=== PATIENT | female | born 1980 | race African-American/Black ===

== ENCOUNTER 2017-03-23 12:31 | Inpatient (IN) | payer BC ==
--- NOTE | 2017-03-23 13:47 | ER Document Report ---
ED General Pain - General Chief Complaint: Rib Pain Stated Complaint: LEFT SIDE PAIN Time Seen by Provider: 03/23/17 13:47 Mode of Arrival: Ambulatory Information source: Patient Notes: 36 yo hypertensive non smoker female c/o intermittent sharp piercing left posterior lateral lower rib area pain for several months. Throbbs a few minutes , later on in the day she will feel it again, 1-2 x per week. No aggrevating or alleviating factors.Today, feels a knot or swelling in the area this morning when getting up and getting dress. [place] around and could feel something there- sore to touch, caused her to come to er to be evaluated. Pt at [facility]. Not sure if this is something serious or not. no other symptoms. No dysuria. TRAVEL OUTSIDE OF THE [place] IN LAST 30 DAYS: No - Related Data Allergies/Adverse Reactions: No Known Allergies Allergy (Verified 03/23/17 12:41) Past Medical History - General Information source: Patient - Social History Smoking Status: Never Smoker Frequency of alcohol use: None Drug Abuse: None Lives with: Family Family History: DM, Hypertension Patient has suicidal ideation: No Patient has homicidal ideation: No - Past Medical History Cardiac Medical History: Reports: Hx Hypertension - chronic , has been sent to hypertension specialist by [facility] Neurological Medical History: Reports: Hx Migraine Renal/ Medical History: Denies: Hx Peritoneal Dialysis Past Surgical History: Reports: Hx Section - Immunizations Immunizations up to date: No Hx Diphtheria, Pertussis, Tetanus Vaccination: No Review of Systems - Review of Systems Constitutional: No symptoms reported EENT: No symptoms reported Cardiovascular: See HPI Respiratory: No symptoms reported Gastrointestinal: No symptoms reported Genitourinary: No symptoms reported Female Genitourinary: No symptoms reported Musculoskeletal: See HPI Skin: No symptoms reported Hematologic/Lymphatic: No symptoms reported Neurological/Psychological: No symptoms reported Physical Exam - Vital signs Vitals: Temp Pulse Resp BP Pulse Ox 98.4 F 114 H 14 200/128 H 100 03/23/17 12:44 03/23/17 12:44 03/23/17 12:44 03/23/17 12:44 03/23/17 12:44 Interpretation: Normal - General General appearance: Appears well, Alert In distress: Mild Notes: leaning to the right because of this pain - HEENT Head: Normocephalic, Atraumatic Eyes: Normal Conjunctiva: Normal Pupils: PERRL Neck: Supple. No: Lymphadenopathy - Respiratory Respiratory status: No respiratory distress Chest status: Nontender, Tender - left posterior lateral lower ribs, no rash Breath sounds: Normal Chest palpation: Normal Notes: hx right low back shingles-takes acyclovir - Cardiovascular Rhythm: Regular Heart sounds: Normal auscultation Murmur: No - Abdominal Inspection: Normal Distension: No distension Bowel sounds: Normal Tenderness: Nontender. No: Tender Organomegaly: No organomegaly. No: Hepatomegaly, Splenomegaly - Back Back: Normal, Nontender. No: Vertebra tenderness, Wounds - Extremities General upper extremity: Normal inspection, Nontender, Normal color, Normal ROM , Normal temperature General lower extremity: Normal inspection, Nontender, Normal color, Normal ROM , Normal temperature, Normal weight bearing. No: Dilcia's sign - Neurological Neuro grossly intact: Yes Cognition: Normal Orientation: AAOx4 [place] Coma Scale Eye Opening: Spontaneous [place] Coma Scale Verbal: Oriented [place] Coma Scale Motor: Obeys Commands [place] Coma Scale Total: 15 Speech: Normal Motor strength normal: LUE, RUE, LLE, RLE Sensory: Normal - Psychological Associated symptoms: Normal affect, Normal mood - Skin Skin Temperature: Warm Skin Moisture: Dry Skin Color: Normal Skin irregularity: negative: Rash Course - Re-evaluation Re-evalutation: 03/23/17 14:[address] Adrian for manual bp 238/150, basically the same in both arms, he wants EKG done. 03/23/17 15:30 EKG shows T-wave inversion in 2 3 aVF and V4 5 and [address] Adrian recommends getting the chest pain protocol putting her on the monitor and if her troponin is negative and admitting her to the hospital. She takes amlodipine and lisinopril the nurses calling real low for dosage. bp is 220/138 which is almost her baseline, pain 3/5 now. the realo external filled medications 03-03-17 showed labetalol 30mg bid. 03/23/17 17:10 Dr. austin will admit the pt does not have dissecting aneurysm, wanted me to order the CTA chest.asked chief inspector for correct orders. 03/23/17 18:20 Dr. Austin was contacted again, he will not admit the patient until the CT of the chest was read and is negative. morphine ordered for the pain that has stayed in the same location. 03/23/17 18:39 The patient thinks is taking 3 antihypertensive. States she has not had amlodipine filled since October 2016 and lisinopril/HCTZ was last filled May 2016. I will be calling the mother at [phone] to get the correct medication so that she can be treated properly. 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 03/23/17 19:31 bp 191/138, morphine 8 mg ordered IV, pending the CT results, verified with mom that pt is ONLY on labetalol 300mg bid. 03/23/17 19:47 cta negative per radiologist. call to dr. ramsay, not answering the phone. pain down to 1-2 from the morphine. repeat troponin ordered. no change in 2nda EKG 03/23/17 20:09 dr. ramsay will admit to ICU, asked to order Cardene drip to reduce her systolic blood pressure goal to 170-190 and diastolic goal is less than 100. urine drug Screen and serum test are pending. 03/23/17 20:13 pain to level1/5 - Vital Signs Vital signs: Temp Pulse Resp BP Pulse Ox 98.4 F 114 H 18 215/134 H 100 03/23/17 12:44 03/23/17 12:44 03/23/17 17:00 03/23/17 16:05 03/23/17 17:00 - Laboratory Result Diagrams: 03/23/17 15:41 03/23/17 15:41 Laboratory results interpreted by me: 03/23/17 03/23/17 15:41 15:41 Hgb 11.8 L MCV 79 L MCH 24.5 L MCHC 31.2 L RDW 16.1 H Potassium 3.4 L AST 40 H Creatine Kinase 174 H Total Protein 8.3 H Discharge - Discharge Clinical Impression: left lateral chest pain, hypertension, T wave inversion in EKG Disposition: ADMITTED OBSERVATION Admitting Provider: Hospitalist Unit Admitted: ICU Referrals: JARET REILLY PA-C [Primary Care Provider] - Follow up as needed
[2017-03-23] MEDS ORDERED: OXYCODONE-ACETAMINOPHEN 5-325 MG TABLET PO ONE (14:15)
[2017-03-23] MEDS ORDERED: ONDANSETRON 4 MG TAB.RAPDIS PO ONE (14:15)
--- NOTE | 2017-03-23 14:35 | RADIOLOGY REPORT (SQ) ---
EXAM DESCRIPTION: CHEST PA/LAT COMPLETED DATE/TIME: 03/23/2017 2:28 pm REASON FOR STUDY: left lower chest pain COMPARISON: None. EXAM PARAMETERS: NUMBER OF VIEWS: two views TECHNIQUE: Digital Frontal and Lateral radiographic views of the chest acquired. RADIATION DOSE: NA LIMITATIONS: none FINDINGS: LUNGS AND PLEURA: No opacities, masses or pneumothorax. No pleural effusion. MEDIASTINUM AND HILAR STRUCTURES: No masses or contour abnormalities. HEART AND VASCULAR STRUCTURES: Heart normal size. No evidence for failure. BONES: No acute findings. HARDWARE: None in the chest. OTHER: No other significant finding. IMPRESSION: NO SIGNIFICANT RADIOGRAPHIC FINDING IN THE CHEST. TECHNICAL DOCUMENTATION: JOB ID: [id number] [employer]- All Rights Reserved
[2017-03-23] MEDS ORDERED: ASPIRIN 81 MG TABLET, CHEWABLE PO ONE (15:17)
[2017-03-23] MEDS ORDERED: LABETALOL HCL 200 MG TABLET PO ONE (15:31)
[2017-03-23 15:58] LABS: ABSOLUTE EOSINOPHILS # (AUTO) 0.1 10^3/uL (0.0-0.6); ABSOLUTE MONOCYTES (AUTO) 0.9 10^3/uL (0.1-1.4); ABSOLUTE NEUT (AUTO) 3.9 10^3/uL (1.7-8.2); BASOPHILS % (AUTO) 0.7 % (0-2); EOSINOPHILS % (AUTO) 1.4 % (0-6); HEMOGLOBIN 11.8 g/dL (12.0-15.5); HGB HCT DIFFERENCE -2.6; LYMPHOCYTES % (AUTO) 28.7 % (13-45); MEAN CORPUSCULAR HEMOGLOBIN 24.5 pg (27.0-33.4); MEAN CORPUSCULAR HGB CONC 31.2 g/dL (32.0-36.0); MEAN CORPUSCULAR VOLUME 79 fl (80-97); MONOCYTES % (AUTO) 12.9 % (3-13); RED BLOOD COUNT 4.83 10^6/uL (3.72-5.28); RED CELL DISTRIBUTION WIDTH 16.1 % (11.5-14.0); SEGMENTED NEUTROPHILS % (AUTO) 56.3 % (42-78)
[2017-03-23 16:28] LABS: ALANINE AMINOTRANSFERASE 29 U/L (9-52); ALKALINE PHOSPHATASE 106 U/L (38-126); ANION GAP 12 (5-19); ASPARTATE AMINO TRANSFERASE 40 U/L (14-36); BILIRUBIN,DIRECT 0.3 mg/dL (0.0-0.4); BILIRUBIN,TOTAL 0.5 mg/dL (0.2-1.3); BLOOD UREA NITROGEN 12 mg/dL (7-20); CALCIUM 8.7 mg/dL (8.4-10.2); CARBON DIOXIDE 25 mmol/L (22-30); CHLORIDE 104 mmol/L (98-107); CREATINE KINASE 174 U/L (30-135); GLUCOSE 97 mg/dL (75-110); POTASSIUM 3.4 mmol/L (3.6-5.0); SODIUM 140.7 mmol/L (137-145); TOTAL PROTEIN 8.3 g/dL (6.3-8.2)
[2017-03-23 16:40] LABS: CREATINE KINASE MB 0.36 ng/mL (<4.55)
[2017-03-23 16:41] LABS: TROPONIN I < 0.012 ng/mL
--- NOTE | 2017-03-23 17:56 | EKG REPORT ---
SEVERITY:- ABNORMAL ECG - SINUS RHYTHM CONSIDER LEFT VENTRICULAR HYPERTROPHY ABNORMAL T, CONSIDER ISCHEMIA, INFERIOR LEADS : Confirmed by: Candace Garces MD 23-Mar-2017 17:55:26
[2017-03-23] MEDS ORDERED: MORPHINE SULFATE 10 MG/ML INJ IV ONE (18:29)
--- NOTE | 2017-03-23 19:43 | RADIOLOGY REPORT (SQ) ---
EXAM DESCRIPTION: CTA CHEST; CTA ABDOMEN/PELVIS W WO COMPLETED DATE/TIME: 03/23/2017 6:59 pm; 03/23/2017 7:00 pm REASON FOR STUDY: r/o aortic dissection COMPARISON: None. TECHNIQUE: CT scan of the aorta extending to the iliac bifurcation performed with and without intrav enous contrast using helical scanning technique with dynamic intravenous contrast injection. Images r eviewed with lung, soft tissue, and bone windows. Reconstructed coronal and sagittal MPR images revie wed. All images stored on PACS. Advanced 3D imaging as volume rendering, MIPS, SSD performed? yes All CT scanners at this facility use dose modulation, iterative reconstruction, and/or weight based d osing when appropriate to reduce radiation dose to as low as reasonably achievable (ALARA). [facility]: Dose Right [facility]: CareDose [facility]: Dose Right [facility]: Teradose 4D [facility]: Synapse CONTRAST TYPE AND DOSE: contrast/concentration: Isovue 370.00 mg/ml; Total Contrast Delivered: 100.0 ml; Total Saline Delivered: 75.0 ml RENAL FUNCTION: GFR > 60. LIMITATIONS: None. FINDINGS: AORTA AND VESSELS: No aneurysm. No dissection. Renal arteries, SMA, celiac without stenosi s. LUNGS: No significant findings. No nodules or infiltrates. LIVER: Normal size. No masses or dilated ducts. SPLEEN: Normal size. No focal lesions. PANCREAS: No masses. No significant calcifications. No adjacent inflammation or peripancreatic fluid collections. Pancreatic duct not dilated. GALLBLADDER: No identified stones by CT criteria. No inflammatory changes to suggest cholecystitis. ADRENAL GLANDS: No significant masses or asymmetry. RIGHT KIDNEY AND URETER: No mass, calculi or urinary tract obstruction. LEFT KIDNEY AND URETER: No mass, calculi or urinary tract obstruction. RETROPERITONEUM: No retroperitoneal adenopathy, hemorrhage or masses. BOWEL AND PERITONEAL CAVITY: No masses or inflammatory changes. No free fluid or peritoneal masses. APPENDIX: Normal. ABDOMINAL WALL: No masses. No hernias. BONY STRUCTURES: No significant or acute findings. 3-D IMAGING: Confirms the above findings. OTHER: No other significant finding. IMPRESSION: NO ABDOMINAL AORTIC ANEURYSM, DISSECTION OR SIGNIFICANT STENOSIS. NO SIGNIFICANT FINDING S. TECHNICAL DOCUMENTATION: JOB ID: [id number] Quality ID # [id number]: Final reports with documentation of one or more dose reduction techniques (e.g., Au tomated exposure control, adjustment of the mA and/or kV according to patient size, use of iterative reconstruction technique) 2010 [employer]- All Rights Reserved
--- NOTE | 2017-03-23 19:43 | RADIOLOGY REPORT (SQ) ---
EXAM DESCRIPTION: CTA CHEST; CTA ABDOMEN/PELVIS W WO COMPLETED DATE/TIME: 03/23/2017 6:59 pm; 03/23/2017 7:00 pm REASON FOR STUDY: r/o aortic dissection COMPARISON: None. TECHNIQUE: CT scan of the aorta extending to the iliac bifurcation performed with and without intrav enous contrast using helical scanning technique with dynamic intravenous contrast injection. Images r eviewed with lung, soft tissue, and bone windows. Reconstructed coronal and sagittal MPR images revie wed. All images stored on PACS. Advanced 3D imaging as volume rendering, MIPS, SSD performed? yes All CT scanners at this facility use dose modulation, iterative reconstruction, and/or weight based d osing when appropriate to reduce radiation dose to as low as reasonably achievable (ALARA). [facility]: Dose Right [facility]: CareDose [facility]: Dose Right [facility]: Teradose 4D [facility]: [employer] CONTRAST TYPE AND DOSE: contrast/concentration: Isovue 370.00 mg/ml; Total Contrast Delivered: 100.0 ml; Total Saline Delivered: 75.0 ml RENAL FUNCTION: GFR > 60. LIMITATIONS: None. FINDINGS: AORTA AND VESSELS: No aneurysm. No dissection. Renal arteries, SMA, celiac without stenosi s. LUNGS: No significant findings. No nodules or infiltrates. LIVER: Normal size. No masses or dilated ducts. SPLEEN: Normal size. No focal lesions. PANCREAS: No masses. No significant calcifications. No adjacent inflammation or peripancreatic fluid collections. Pancreatic duct not dilated. GALLBLADDER: No identified stones by CT criteria. No inflammatory changes to suggest cholecystitis. ADRENAL GLANDS: No significant masses or asymmetry. RIGHT KIDNEY AND URETER: No mass, calculi or urinary tract obstruction. LEFT KIDNEY AND URETER: No mass, calculi or urinary tract obstruction. RETROPERITONEUM: No retroperitoneal adenopathy, hemorrhage or masses. BOWEL AND PERITONEAL CAVITY: No masses or inflammatory changes. No free fluid or peritoneal masses. APPENDIX: Normal. ABDOMINAL WALL: No masses. No hernias. BONY STRUCTURES: No significant or acute findings. 3-D IMAGING: Confirms the above findings. OTHER: No other significant finding. IMPRESSION: NO ABDOMINAL AORTIC ANEURYSM, DISSECTION OR SIGNIFICANT STENOSIS. NO SIGNIFICANT FINDING S. TECHNICAL DOCUMENTATION: JOB ID: [id number] Quality ID # [id number]: Final reports with documentation of one or more dose reduction techniques (e.g., Au tomated exposure control, adjustment of the mA and/or kV according to patient size, use of iterative reconstruction technique) 2010 [employer]- All Rights Reserved
[2017-03-23] MEDS ORDERED: NICARDIPINE HCL RTU, ISO-OS 200 ML IV PRN ×2 (20:10→21:41)
[2017-03-23] MEDS ORDERED: MAGNESIUM HYDROXIDE SUSP 30 ML UDCUP PO PRN (21:45)
[2017-03-23] MEDS ORDERED: ACETAMINOPHEN 325 MG TABLET PO PRN (21:45)
[2017-03-23] MEDS ORDERED: MAG HYDROX/AL HYDROX/SIMETH SUSP 30 ML UDCUP PO PRN (21:45)
[2017-03-23] MEDS ORDERED: PROMETHAZINE HCL 25 MG TABLET PO PRN (21:50)
[2017-03-23] MEDS ORDERED: POTASSIUM CHLORIDE 20 MEQ/15 ML UDCUP PO ONE (22:00)
--- NOTE | 2017-03-23 22:08 | PDOC H&P ---
History of Present Illness Admission Date/PCP: 03/23/17 20:22 JARET REILLY PA-C Patient complains of: Left flank pain History of Present Illness: EZEKIEL KEEN is a 36 year old -[place] female with known difficult to control blood pressure, currently being seen at a hypertension clinic in [place], who presents to the emergency room for evaluation of above complaint. Patient has been discussed with emergency room nurse practitioner who evaluated the patient. She describes a several month history of intermittent sharp piercing posterior left lateral lower rib area pain. Episodes last a few minutes, often times will recur later in the day, 1-2 times a week. Normally no aggravating or alleviating factors, but palpation of the area patient noted today increased her discomfort. Came to the emergency room today because she felt a "knot" or swelling in the area that was tender. No knots or swelling palpated either by myself or the ER nurse practitioner. Denies nausea vomiting, fever or chills, diarrhea or dysuria. No chest pain otherwise. No abdominal pain otherwise. Denies blurred vision, or lateralizing numbness tingling or weakness. Blood pressure noted to be quite elevated. The only medication she is currently taking is labetalol daily, uncertain dose. Also should be taking amlodipine, not filled since October of this year, and lisinopril/HCTZ combination. Latter medication not filled since last May. Blood pressure noted to be 220/138 in the emergency room. Patient stated this was basically her baseline blood pressure Denies previous myocardial infarction, congestive heart failure, pulmonary embolus or DVT. No prior cardiac workup. Describes headaches 1 or 2 days a week. Last episode was yesterday. No headache at present. Laboratory results are listed in [facility] and are reviewed. X-ray summary results are listed below, with full report(s) reviewed. . EKG's reviewed. No prior tracing available for comparison. Social history/personal habits: Single. One child. 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 No tobacco or illicit drug use. A bottle of wine every 1-1/2 days. No known drug allergies. Home medications initially autopopulated into [employer] may not accurately reflect patient's true medications, dosages, and/or frequencies. industrial ecology technician to reconcile medications. Unfortunately, patient not certain of all medications/dosages/frequencies. REVIEW OF SYSTEMS: Constitutional: No fever or chills. Eyes: Wears glasses. ENT: No swallowing problems or complaints. Denies hearing loss. Pulmonary: No current complaints. Cardiovascular: See history and present illness. Gastrointestinal: See history and present illness. Skin: No current complaints, including rashes. Hematologic: Easy bruising. Neurologic: No current complaints, including numbness or tingling. Musculoskeletal: No current or chronic joint complaints, such as arthritis. Psychiatric: Denies anxiety or depression. Endocrine: No current complaints, including polyuria. Genitourinary: No current complaints, including dysuria. PHYSICAL EXAMINATION: 5 feet 2 inches tall. 82.5 kg. BMI 33.3 kg/m. Blood pressure 191/124. Pulse 83 and regular. 100% saturation on room air. Respirations are 15 and unlabored. Temperature 98.4. Slightly obese otherwise well-nourished well-developed -[place]gent[place] female appearing approximately her stated age. Pleasant awake alert and cooperative. Having some discomfort at the site of tenderness on her left posterior lateral flank. Female friend is present at her side; patient approves. Female emergency room nurse Dominique is present. Skin is warm and dry. No grossly obvious evidence of rash in areas of skin examined. No subcutaneous nodules palpated. ENT: Hearing grossly normal to normal conversation. Tongue midline on protrusion pink and slightly tacky. Eyes: No scleral icterus. Pupils equal and reactive to light at 4 mm. [place] conjunctivae. Neck is supple and nontender to gentle active range of motion and palpation. Midline trachea. No palpable thyroid nodule mass enlargement or tenderness. Lymphatic: No palpable cervical or clavicular nodes. Neck and lymphatic exams limited by patient body habitus. Psychiatric: Reasonable insight into acute and chronic medical issues. Oriented to time location and why here. Lungs: Auscultation reveals clear and equal breath sounds bilaterally. No use of accessory respiratory muscles. Cardiovascular: Heart regular rate and rhythm, without gallop murmur or rub. No carotid or abdominal aortic bruits. No ankle or pedal edema. Palpable dorsalis pedis pulses. Abdomen:soft slightly obese nontender with positive bowel sounds. Unable to adequately evaluate abdomen for masses or organomegaly due to body habitus. Patient points to a single small site on her left lateral lower posterior rib cage as the site of tenderness. Direct palpation does increase her discomfort slightly. No nodule, instability, or crepitus palpated. Extremities: Feet are warm and dry. No calf tenderness to compression. No grossly obvious visual evidence of calf swelling. Gentle manipulation of lower extremities fails to reveal any obvious evidence of injury or instability to knees hips or ankles. Neurologic: Cranial Nerves II through XII are grossly intact. Light touch intact at face, upper and lower extremities. Motor function of major muscle groups upper and lower extremities 5 over 5 and symmetric. Patellar reflexes absent. Absent Babinski. No nystagmus. Past Medical History Cardiac Medical History: Reports: Hypertension - chronic , has been sent to hypertension specialist by [facility] Denies: Congestive Heart Failure, DVT, Myocardial Infarction, Hyperlipidema, Pulmonary Embolism Pulmonary Medical History: Denies: Asthma, Chronic Obstructive Pulmonary Disease (COPD), Sleep Apnea EENT Medical History: Reports: Eyes - Wears glasses Denies: Ears, Throat Neurological Medical History: Reports: Other - Chronic headaches Denies: Hemorrhagic CVA, Ischemic CVA, Seizures Endocrine Medical History: Denies: Diabetes Mellitus Type 1, Diabetes Mellitus Type 2, Hyperthyroidism, Hypothyroidism Renal/ Medical History: Reports: None GI Medical History: Denies: Cirrhosis, Gastroesophageal Reflux Disease, Hepatitis, Peptic Ulcer Disease Musculoskeltal Medical History: Denies: Arthritis Skin Medical History: Reports: None Psychiatric Medical History: Reports: Alcohol Dependency - A bottle of wine every 1-1/2 days. Denies: Depression, General Anxiety Disorder, Substance Abuse, Tobacco Dependency Hematology: Reports: Other - Easy bruising Infectious Medical History: Denies: Clostridium Difficile, Hepatitis B, Hepatitis C, Methicillin- Resistant Staph Aureus Past Surgical History Past Surgical History: Reports: Section Social History Information Source: Patient, Emergency Med Personnel, [facility] Records Lives with: Family Smoking Status: Never Smoker Frequency of Alcohol Use: Social Drugs: None - Advance Directive Resuscitation Status: Full Code Surrogate healthcare decision maker:: Mother Family History Family History: DM, Hypertension Parental Family History Reviewed: Yes - Mother healthy. Father alive, hypertensive and diabetic. Children Family History Reviewed: Yes - Healthy Sibling(s) Family History Reviewed.: Yes - Healthy Medication/Allergy Home Medications: RX: Amitriptyline HCl [Elavil 25 mg Tablet] 25 mg PO QHS 03/23/17 RX: Valacyclovir HCl [Valtrex 500 mg Tablet] 500 mg PO DAILY 03/23/17 RX: Amlodipine Besylate [Norvasc 5 mg Tablet] 5 mg PO DAILY #30 tablet 03/25/17 RX: Labetalol HCl [Normodyne 200 mg Tablet] 300 mg PO Q12 #60 tablet 03/25/17 RX: Potassium Chloride [Klor-Con 10 Meq Tablet.sa] 20 meq PO DAILY #30 tablet.sa 03/25/17 Allergies/Adverse Reactions: No Known Allergies Allergy (Verified 03/23/17 12:41) Physical Exam Vital Signs: Temp Pulse Resp BP Pulse Ox 98.4 F 114 H 18 215/134 H 100 03/23/17 12:44 03/23/17 12:44 03/23/17 17:00 03/23/17 16:05 03/23/17 17:00 Results Impressions: Chest X-Ray 03/23/17 14:03 IMPRESSION: NO SIGNIFICANT RADIOGRAPHIC FINDING IN THE CHEST. Abdomen/Pelvis CTA 03/23/17 17:15 IMPRESSION: NO ABDOMINAL AORTIC ANEURYSM, DISSECTION OR SIGNIFICANT STENOSIS. NO SIGNIFICANT FINDINGS. Chest/Abdomen CTA 03/23/17 17:15 IMPRESSION: NO ABDOMINAL AORTIC ANEURYSM, DISSECTION OR SIGNIFICANT STENOSIS. NO SIGNIFICANT FINDINGS. Assessment & Plan - Diagnosis (2) History of headache Is this a current diagnosis for this admission?: YesPlan: Presently no headache. Last headache yesterday. However, with quite elevated blood pressure, will proceed with CT scan of brain without contrast. (3) Elevated LFTs Is this a current diagnosis for this admission?: YesPlan: Repeat hepatic profile. Denies underlying biliary disease. (4) Hypertensive urgency Is this a current diagnosis for this admission?: YesPlan: Cardene drip. Urine drug screen ordered. Intensive care unit. Serial troponin. Repeat EKG. Lipid panel. I have strongly encouraged patient not to get out of bed without notifying staff , to avoid a fall with injury. Knee high SCDs for DVT prophylaxis, along with subcutaneous Lovenox. Impression and plans were discussed with patient who concurs. Time spent in evaluation and management of patient: 62 minutes. (5) Hypokalemia Is this a current diagnosis for this admission?: YesPlan: Potassium replacement. Follow-up chemistry. (6) Left flank pain, chronic Is this a current diagnosis for this admission?: YesPlan: As needed pain medication. No obvious cause of pain at this point in time. Denies prior trauma or rib fracture. (7) Noncompliance Is this a current diagnosis for this admission?: Yes - Inpatient Certification Based on my medical assessment, after consideration of the patient's comorbidities, presenting symptoms, or acuity I expect that the services needed warrant INPATIENT care.: Yes I certify that my determination is in accordance with my understanding of Medicare's requirements for reasonable and necessary INPATIENT services [42 CFR 412.3e].: Yes Medical Necessity: Need Close Monitoring Due to Risk of Patient Decompensation, Need For Continuous Telemetry Monitoring, Risk of Complication if Not Cared For in Hospital, Risk of Diagnosis Which Will Require Inpatient Eval/Care/Monitoring Post Hospital Care: D/C or Transfer Summary
[2017-03-23 22:22] LABS: APPEARANCE,URINE CLEAR; BILIRUBIN,URINE NEGATIVE (NEGATIVE); GLUCOSE, URINE NEGATIVE (NEGATIVE); KETONES,URINE NEGATIVE (NEGATIVE); LEUKOCYTE ESTERASE,URINE TRACE (NEGATIVE); NITRITE,URINE NEGATIVE (NEGATIVE); PROTEIN,URINE NEGATIVE (NEGATIVE); URINE SPECIFIC GRAVITY 1.044; UROBILINOGEN,URINE NEGATIVE mg/dL (<2.0)
[2017-03-23 22:25] LABS: ADD ON TESTING BLD IN LAB ACKNOWLEDGE
--- NOTE | 2017-03-23 22:30 | RADIOLOGY REPORT (SQ) ---
EXAM DESCRIPTION: CT HEAD WITHOUT COMPLETED DATE/TIME: 03/23/2017 10:07 pm REASON FOR STUDY: h/a; htn urgency COMPARISON: 05/08/2016 TECHNIQUE: Axial images acquired through the brain without intravenous contrast. Images reviewed wi th bone, brain and subdural windows. Images stored on PACS. All CT scanners at this facility use dose modulation, iterative reconstruction, and/or weight based d osing when appropriate to reduce radiation dose to as low as reasonably achievable (ALARA). [facility]: Dose Right [facility]: CareDose [facility]: Dose Right [facility]: Teradose 4D [facility]: PurePhoto RADIATION DOSE: Up-to-date CT equipment and radiation dose reduction techniques were employed. CTDIv ol: 64.6 mGy. DLP: 1163 mGy-cm. mGy. LIMITATIONS: None. FINDINGS: VENTRICLES: Normal size and contour. CEREBRUM: No masses. No hemorrhage. No midline shift. Normal gary/white matter differentiation. N o evidence for acute infarction. CEREBELLUM: No masses. No hemorrhage. No alteration of density. No evidence for acute infarction. EXTRAAXIAL SPACES: No fluid collections. No masses. ORBITS AND GLOBE: No intra- or extraconal masses. Normal contour of globe without masses. CALVARIUM: No fracture. PARANASAL SINUSES: No fluid or mucosal thickening. SOFT TISSUES: No mass or hematoma. OTHER: No other significant finding. IMPRESSION: No acute intracranial findings. TECHNICAL DOCUMENTATION: JOB ID: [id number] Quality ID # [id number]: Final reports with documentation of one or more dose reduction techniques (e.g., Au tomated exposure control, adjustment of the mA and/or kV according to patient size, use of iterative reconstruction technique) 2010 [employer]- All Rights Reserved
[2017-03-23 22:37] LABS: URINE METHADONE SCREEN NEGATIVE; URINE PHENCYCLIDINE SCREEN NEGATIVE
[2017-03-23 22:43] LABS: URINE OPIATES LOW UNCONFIRMED POSITIVE
[2017-03-23 22:44] LABS: URINE BARBITURATES SCREEN UNCONFIRMED POSITIVE
[2017-03-23 22:58] LABS: MAGNESIUM 1.7 mg/dL (1.6-2.3)
[2017-03-23] MEDS ORDERED: THIAMINE HCL 100 MG TABLET PO ONE (23:30)
[2017-03-24] MEDS ORDERED: POTASSIUM CHLORIDE 20 MEQ/15 ML UDCUP PO ONE
[2017-03-24] MEDS: OXYCODONE HCL IR 5 MG TABLET PO PRN ×3 (01:34→20:08)
[2017-03-24 09:17] LABS: ALANINE AMINOTRANSFERASE 32 U/L (9-52); ALBUMIN 4.3 g/dL (3.5-5.0); ALKALINE PHOSPHATASE 105 U/L (38-126); ANION GAP 15 (5-19); ASPARTATE AMINO TRANSFERASE 25 U/L (14-36); BILIRUBIN,DIRECT 0.3 mg/dL (0.0-0.4); BILIRUBIN,TOTAL 0.7 mg/dL (0.2-1.3); BLOOD UREA NITROGEN 4 mg/dL (7-20); CALCIUM 9.4 mg/dL (8.4-10.2); CARBON DIOXIDE 25 mmol/L (22-30); CHLORIDE 102 mmol/L (98-107); CHOLESTEROL 134.73 mg/dL (0-200); CREATININE RESULT 0.75 mg/dL (0.52-1.25); Direct HDL 55 mg/dL (>40); GLUCOSE 100 mg/dL (75-110); POTASSIUM 3.8 mmol/L (3.6-5.0); TOTAL PROTEIN 8.4 g/dL (6.3-8.2); TRIGLYCERIDES 97 mg/dL (<150)
[2017-03-24] MEDS: AMLODIPINE BESYLATE 5 MG TABLET PO SCH (09:26)
[2017-03-24] MEDS: LABETALOL HCL 200 MG TABLET PO SCH ×2 (09:27→21:01)
[2017-03-24 09:28] LABS: DIRECT LDL 37 mg/dL (<100)
[2017-03-24] MEDS: FOLIC ACID 1 MG TABLET PO SCH (09:28)
[2017-03-24] MEDS: THIAMINE HCL 100 MG TABLET PO SCH (09:28)
[2017-03-24] MEDS: DOCUSATE SODIUM 100 MG CAPSULE PO SCH ×2 (09:28→17:18)
[2017-03-24] MEDS: MULTIVITAMIN TABLET PO SCH (09:28)
[2017-03-24] MEDS: ENOXAPARIN SODIUM INJ 40 MG/0.4 ML DISP.SYRIN SUBCUT SCH (09:29)
--- NOTE | 2017-03-24 11:30 | PDOC PROGRESS REPORT ---
Subjective Progress Note for:: 03/24/17 Subjective:: Her rib pain is improved. Physical Exam Vital Signs: Temp Pulse Resp BP Pulse Ox 98.1 F 87 15 119/80 100 03/24/17 10:58 03/24/17 10:58 03/24/17 10:58 03/24/17 10:58 03/24/17 10:58 Intake & Output 03/23/17 03/24/17 03/25/17 06:59 06:59 06:59 Intake Total 239 120 Output Total 1000 Balance -761 120 Weight 82.8 kg General appearance: PRESENT: no acute distress Eye exam: PRESENT: conjunctiva pink. ABSENT: scleral icterus Mouth exam: PRESENT: moist, tongue midline Neck exam: ABSENT: JVD Respiratory exam: PRESENT: clear to auscultation wild. ABSENT: rales, rhonchi, wheezes Cardiovascular exam: PRESENT: RRR. ABSENT: diastolic murmur, rubs, systolic murmur GI/Abdominal exam: PRESENT: normal bowel sounds, soft. ABSENT: distended, guarding, mass, organolmegaly, rebound, tenderness Extremities exam: PRESENT: full ROM. ABSENT: calf tenderness, clubbing, pedal edema Neurological exam: PRESENT: alert, awake, oriented to person, oriented to place , oriented to time, oriented to situation, CN II-XII grossly intact. ABSENT: motor sensory deficit Psychiatric exam: PRESENT: appropriate affect Skin exam: PRESENT: dry, intact, warm. ABSENT: cyanosis, rash Results Laboratory Results: 03/24/17 08:30 03/23/17 03/23/17 03/23/17 21:55 22:19 22:19 Sodium Potassium Chloride Carbon Dioxide Anion Gap BUN Creatinine Est GFR ( Amer) Est GFR (Non-Af Amer) Glucose Calcium Magnesium 1.7 Total Bilirubin AST ALT Alkaline Phosphatase Total Protein Albumin Triglycerides Cholesterol LDL Cholesterol Direct VLDL Cholesterol HDL Cholesterol TSH 3.88 Urine Color YELLOW Urine Appearance CLEAR Urine pH 7.0 Ur Specific [place] 1.044 Urine Protein NEGATIVE Urine Glucose (UA) NEGATIVE Urine Ketones NEGATIVE Urine Blood LARGE H Urine Nitrite NEGATIVE Ur Leukocyte Esterase TRACE H Urine WBC (Auto) 73 Urine RBC (Auto) 135 03/24/17 08:30 Sodium 142.0 Potassium 3.8 Chloride 102 Carbon Dioxide 25 Anion Gap 15 BUN 4 L Creatinine 0.75 Est GFR ( Amer) > 60 Est GFR (Non-Af Amer) > 60 Glucose 100 Calcium 9.4 Magnesium Total Bilirubin 0.7 AST 25 ALT 32 Alkaline Phosphatase 105 Total Protein 8.4 H Albumin 4.3 Triglycerides 97 Cholesterol 134.73 LDL Cholesterol Direct 37 VLDL Cholesterol 19.0 HDL Cholesterol 55 TSH Urine Color Urine Appearance Urine pH Ur Specific [place] Urine Protein Urine Glucose (UA) Urine Ketones Urine Blood Urine Nitrite Ur Leukocyte Esterase Urine WBC (Auto) Urine RBC (Auto) 03/24/17 03/24/17 02:07 08:30 Troponin I < 0.012 < 0.012 Impressions: Head CT 03/23/17 00:00 IMPRESSION: No acute intracranial findings. Chest X-Ray 03/23/17 14:03 IMPRESSION: NO SIGNIFICANT RADIOGRAPHIC FINDING IN THE CHEST. Abdomen/Pelvis CTA 03/23/17 17:15 IMPRESSION: NO ABDOMINAL AORTIC ANEURYSM, DISSECTION OR SIGNIFICANT STENOSIS. NO SIGNIFICANT FINDINGS. Chest/Abdomen CTA 03/23/17 17:15 IMPRESSION: NO ABDOMINAL AORTIC ANEURYSM, DISSECTION OR SIGNIFICANT STENOSIS. NO SIGNIFICANT FINDINGS. Assessment & Plan - Diagnosis (1) Hypertensive urgency Is this a current diagnosis for this admission?: YesPlan: Patient's blood pressure has improved. Will restart the oral labetalol and add on Norvasc. If her blood pressure remained stable today we can hopefully discharge home later today. (2) Hypokalemia Is this a current diagnosis for this admission?: YesPlan: Resolved - Time Time Spent with patient: 25-34 minutes - Inpatient Certification Medical Necessity: Need Close Monitoring Due to Risk of Patient Decompensation - Plan Summary Plan Summary: If her blood pressure remains stable today we can hopefully discharge home later this afternoon.
--- NOTE | 2017-03-24 12:44 | EKG REPORT ---
SEVERITY:- ABNORMAL ECG - SINUS RHYTHM ABNORMAL T, CONSIDER ISCHEMIA, DIFFUSE LEADS BORDERLINE PROLONGED QT INTERVAL : Confirmed by: Candace Garces MD 24-Mar-2017 12:42:41
--- NOTE | 2017-03-24 12:44 | EKG REPORT ---
SEVERITY:- ABNORMAL ECG - SINUS RHYTHM ABNORMAL T, CONSIDER ISCHEMIA, DIFFUSE LEADS PROLONGED QT INTERVAL : Confirmed by: Candace Garces MD 24-Mar-2017 12:42:45
[2017-03-24] MEDS ORDERED: KETOROLAC TROMETHAMINE INJ/PF 30 MG/1 ML SDV IV ONE (14:00)
[2017-03-24] MEDS ORDERED: LABETALOL HCL 200 MG TABLET PO ONE (17:30)
[2017-03-25 05:35] LABS: ANION GAP 12 (5-19); BLOOD UREA NITROGEN 15 mg/dL (7-20); CALCIUM 9.1 mg/dL (8.4-10.2); CARBON DIOXIDE 24 mmol/L (22-30); CHLORIDE 104 mmol/L (98-107); CREATININE RESULT 1.03 mg/dL (0.52-1.25); GLUCOSE 94 mg/dL (75-110); POTASSIUM 3.2 mmol/L (3.6-5.0); SODIUM 140.2 mmol/L (137-145)
[2017-03-25] MEDS ORDERED: POTASSIUM CHLORIDE 10 MEQ TABLET.SA PO ONE (07:00)
[2017-03-25 07:58] LABS: HEMATOCRIT 36.7 % (36.0-47.0); HEMOGLOBIN 11.4 g/dL (12.0-15.5); HGB HCT DIFFERENCE -2.5; MEAN CORPUSCULAR HEMOGLOBIN 24.8 pg (27.0-33.4); MEAN CORPUSCULAR HGB CONC 31.1 g/dL (32.0-36.0); MEAN CORPUSCULAR VOLUME 80 fl (80-97); RED CELL DISTRIBUTION WIDTH 16.4 % (11.5-14.0); WHITE BLOOD COUNT 5.3 10^3/uL (4.0-10.5)
[2017-03-25 08:16] VITALS: BP 137/97
[2017-03-25] MEDS: DOCUSATE SODIUM 100 MG CAPSULE PO SCH (09:02)
[2017-03-25] MEDS: AMLODIPINE BESYLATE 5 MG TABLET PO SCH (09:03)
[2017-03-25] MEDS: LABETALOL HCL 200 MG TABLET PO SCH (09:03)
[2017-03-25] MEDS: THIAMINE HCL 100 MG TABLET PO SCH (09:03)
[2017-03-25] MEDS: MULTIVITAMIN TABLET PO SCH (09:03)
[2017-03-25] MEDS: FOLIC ACID 1 MG TABLET PO SCH (09:03)
[2017-03-25] MEDS: ENOXAPARIN SODIUM INJ 40 MG/0.4 ML DISP.SYRIN SUBCUT SCH (09:05)
[2017-03-25] MEDS ORDERED: POTASSIUM CHLORIDE 10 MEQ TABLET.SA PO SCH (10:00)
--- NOTE | 2017-03-25 11:10 | PDOC DISCHARGE SUMMARY ---
General - Admit/Disc Date/PCP Admission Date/Primary Care Provider: 03/23/17 21:45 JARET REILLY PA-C Discharge Date: 03/25/17 - Discharge Diagnosis (1) Hypertensive urgency Is this a current diagnosis for this admission?: Yes (2) Hypokalemia Is this a current diagnosis for this admission?: Yes - Additional Information Resuscitation Status: Full Code Discharge Diet: Cardiac Discharge Activity: Activity As Tolerated Home Medications: Amitriptyline HCl [Elavil 25 mg Tablet] 25 mg PO QHS 03/23/17 Valacyclovir HCl [Valtrex 500 mg Tablet] 500 mg PO DAILY 03/23/17 Amlodipine Besylate [Norvasc 5 mg Tablet] 5 mg PO DAILY #30 tablet 03/25/17 Labetalol HCl [Normodyne 200 mg Tablet] 300 mg PO Q12 #60 tablet 03/25/17 Potassium Chloride [Klor-Con 10 Meq Tablet.sa] 20 meq PO DAILY #30 tablet.sa History of Present Illness History of Present Illness: EZEKIEL KEEN is a 36 year old female who presented to the emergency room with complaints of left-sided chest wall pain and left flank pain. The patient had intermittent sharp piercing left lateral lower rib pain. This intermittently unrelated to exertion. Patient presented to emergency room was found to have a blood pressure of 220/138. Patient is admitted for hypertensive urgency. Hospital Course Hospital Course: 6-year-old female who presented with some noncardiac chest pain who was found to be hypertensive with a blood pressure 220/138. The patient reported that she had been compliant most of the time with her beta-wilbur but had stopped her Norvasc. The patient was started on Cardene IV with control of blood pressure. Patient also was restarted on labetalol and she was weaned off of IV medications and Norvasc was added. The patient's blood pressure has returned to the normal range although she still has some intermittent chest wall pain treated with nonsteroidals with some relief. The patient had cardiac enzymes that were negative. The importance of being compliant with her medications was reiterated. Physical Exam Vital Signs: Temp Pulse Resp BP Pulse Ox 97.9 F 83 13 137/97 H 100 03/25/17 08:35 03/25/17 08:35 03/25/17 08:35 03/25/17 08:35 03/25/17 08:35 Intake & Output 03/24/17 03/25/17 03/26/17 06:59 06:59 06:59 Intake Total 239 320 Output Total 1000 100 Balance -761 220 Weight 82.8 kg 82.9 kg General appearance: PRESENT: no acute distress Eye exam: PRESENT: conjunctiva pink Mouth exam: PRESENT: moist, tongue midline Neck exam: ABSENT: carotid bruit, JVD, lymphadenopathy, thyromegaly Respiratory exam: PRESENT: chest wall tenderness - Chest wall tender to palpation over the left lateral chest wall, clear to auscultation wild. ABSENT: rales, rhonchi, wheezes Cardiovascular exam: PRESENT: RRR. ABSENT: diastolic murmur, rubs, systolic murmur GI/Abdominal exam: PRESENT: normal bowel sounds, soft. ABSENT: distended, guarding, mass, organolmegaly, rebound, tenderness Extremities exam: ABSENT: calf tenderness, clubbing, pedal edema Neurological exam: PRESENT: alert, awake, oriented to person, oriented to place , oriented to time, oriented to situation, CN II-XII grossly intact. ABSENT: motor sensory deficit Psychiatric exam: PRESENT: appropriate affect Skin exam: PRESENT: dry, intact, warm. ABSENT: cyanosis, rash Results Laboratory Results: 03/25/17 05:01 03/25/17 05:01 03/25/17 03/25/17 05:01 05:01 WBC 5.3 RBC 4.60 Hgb 11.4 L Hct 36.7 MCV 80 MCH 24.8 L MCHC 31.1 L RDW 16.4 H Plt Count 174 Sodium 140.2 Potassium 3.2 L Chloride 104 Carbon Dioxide 24 Anion Gap 12 BUN 15 Creatinine 1.03 Est GFR ( Amer) > 60 Est GFR (Non-Af Amer) > 60 Glucose 94 Calcium 9.1 03/24/17 03/24/17 02:07 08:30 Troponin I < 0.012 < 0.012 Impressions: Head CT 03/23/17 00:00 IMPRESSION: No acute intracranial findings. Chest X-Ray 03/23/17 14:03 IMPRESSION: NO SIGNIFICANT RADIOGRAPHIC FINDING IN THE CHEST. Abdomen/Pelvis CTA 03/23/17 17:15 IMPRESSION: NO ABDOMINAL AORTIC ANEURYSM, DISSECTION OR SIGNIFICANT STENOSIS. NO SIGNIFICANT FINDINGS. Chest/Abdomen CTA 03/23/17 17:15 IMPRESSION: NO ABDOMINAL AORTIC ANEURYSM, DISSECTION OR SIGNIFICANT STENOSIS. NO SIGNIFICANT FINDINGS. Qualifiers PATEINT BEING DISCHARGED WITH ANY OF THE FOLLOWING DIAGNOSIS?: No Plan Discharge Plan: Is discharged home in stable condition. Will follow up with primary care in 2 weeks Time Spent: Less than 30 Minutes
== END 2017-03-25 09:30 | disposition home or self-care (01) | DRG 305 ==
LOC: ER 12:31 → OBSVTOIN 20:22 → INTOOBSV 20:22 → UNDOADMOB 20:22 → EH 20:22 → OBSVTOIN 21:45 → ICU 03-24 00:55
PROVIDERS: ADMIT Family Medicine; ATTEND Family Medicine
DX: I16.0 Hypertensive urgency (principal); I10 Essential (primary) hypertension; E87.6 Hypokalemia; E66.9 Obesity, unspecified; Z68.33 Body mass index [BMI] 33.0-33.9, adult; F10.20 Alcohol dependence, uncomplicated; R10.9 Unspecified abdominal pain; G43.909 Migraine, unspecified, not intractable, without status migrainosus; Z91.14 Patient's other noncompliance with medication regimen; Z79.899 Other long term (current) drug therapy; Z83.3 Family history of diabetes mellitus; Z82.49 Family history of ischemic heart disease and other diseases of the circulatory system
CPT/HCPCS: 36415; 70450; 71020; 71275; 74174; 80048; 80053; 80061; 80307; 81001; 82550; 82553; 83735; 84443; 84484; 84703; 85025; 85027; 87086; 93005; 93010; 96374; 99285; J1650; J1885; J2270; J3490; S0119

== ENCOUNTER 2019-01-08 10:17 | Emergency (ER) | payer OTHER, BC ==
--- NOTE | 2019-01-08 10:33 | ER Document Report ---
ED Medical Screen (RME) - General Chief Complaint: S/S of Possible Stroke Stated Complaint: EYE SWELLING/LEFT SIDE TINGLING AND NUMB Time Seen by Provider: 01/08/19 10:30 Primary Care Provider: JARET REILLY PA-C [Primary Care Provider] - Follow up as needed TRAVEL OUTSIDE OF THE [place] IN LAST 30 DAYS: No - HPI Notes: 01/08/19 10:31 Patient is a 38-year-old female with a history of hypertension and migraines who presents the emergency department complaining of left arm tingling and decrease in sensation from her elbow distally that she woke up to this morning. Patient states that she went to bed feeling normal last evening at 8 PM. She is not on any blood thinning medications. She does not have any pain or discomfort. Denies any headache, fever, head injury, neck pain, changes in vision/speech/mentation/hearing, URI, sore throat, chest pain, palpitations, syncope, cough, shortness of breath, wheeze, dyspnea, abdominal pain, nausea/vomiting/diarrhea, urinary retention, dysuria, hematuria, loss of control of bowel or bladder, saddle anesthesia, muscle paralysis/weakness, or rash. I have treated and performed a rapid initial assessment of this patient. A comprehensive ED assessment and evaluation of the patient, analysis of test results and completion of medical decision making process will be conducted by additional ED providers. PHYSICAL EXAMINATION: GENERAL: Well-appearing, well-nourished and in no acute distress. A&Ox4. Answers questions appropriately. HEAD: Atraumatic, normocephalic. Non-tender. EYES: Pupils equal round and reactive to light, extraocular movements intact, sclera anicteric, conjunctiva are normal. No nystagmus. LUNGS: Breath sounds clear to auscultation bilaterally and equal. No wheezes rales or rhonchi. HEART: Regular rate and rhythm without murmurs, rubs, gallops. Musculoskeletal: Ext's b/l: FROM to passive/active. Strength 5+/5. No deficits noted. No bony tenderness of extremities. Extremities: No cyanosis, clubbing, or edema b/l. Peripheral pulses 2+. Capillary refill less than 2 seconds. NEUROLOGICAL: NIH 1 (more of a subjective dec sensation left arm only). GCS 15. Cranial nerves grossly intact. Normal speech. SHOAIB's negative. Pronator drift negative. Heel/churchill, finger/nose wnl. PSYCH: Normal mood, normal affect. SKIN: Warm, Dry, normal turgor, no rashes or lesions noted. - Related Data Allergies/Adverse Reactions: No Known Allergies Allergy (Verified 01/08/19 10:25) Past Medical History - Past Medical History Cardiac Medical History: Reports: Hx Hypertension - chronic , has been sent to hypertension specialist by [facility] Denies: Hx Congestive Heart Failure, Hx DVT, Hx Heart Attack, Hx Hypercholesterolemia, Hx Pulmonary Embolism Pulmonary Medical History: Denies: Hx Asthma, Hx COPD, Hx Sleep Apnea Neurological Medical History: Reports: Hx Migraine. Denies: Hx Seizures Endocrine Medical History: Denies: Hx Diabetes Mellitus Type 1, Hx Diabetes Mellitus Type 2, Hx Hyperthyroidism, Hx Hypothyroidism Renal/ Medical History: Denies: Hx Peritoneal Dialysis GI Medical History: Denies: Hx Cirrhosis, Hx Gastroesophageal Reflux Disease, Hx Hepatitis Musculoskeltal Medical History: Denies Hx Arthritis Psychiatric Medical History: Denies: Hx Depression Infectious Medical History: Denies: Hx C-Diff, Hx Hepatitis, Hx MRSA Past Surgical History: Reports: Hx Section - Immunizations Immunizations up to date: No Hx Diphtheria, Pertussis, Tetanus Vaccination: No Doctor's Discharge - Discharge Referrals: JARET REILLY PA-C [Primary Care Provider] - Follow up as needed
--- NOTE | 2019-01-08 10:53 | RADIOLOGY REPORT (SQ) ---
EXAM DESCRIPTION: CT HEAD WITHOUT COMPLETED DATE/TIME: 01/08/2019 10:37 am REASON FOR STUDY: stroke COMPARISON: None. TECHNIQUE: Axial images acquired through the brain without intravenous contrast. Images reviewed wi th bone, brain and subdural windows. Additional sagittal and coronal reconstructions were generated. Images stored on PACS. All CT scanners at this facility use dose modulation, iterative reconstruction, and/or weight based d osing when appropriate to reduce radiation dose to as low as reasonably achievable (ALARA). [facility]: Dose Right [facility]: CareDose [facility]: Dose Right [facility]: Teradose 4D [facility]: Smart [employer] RADIATION DOSE: CT Rad equipment meets quality standard of care and radiation dose reduction techniq ues were employed. CTDIvol: 53.2 mGy. DLP: 1044 mGy-cm. mGy. LIMITATIONS: None. FINDINGS: VENTRICLES: Normal size and contour. CEREBRUM: No masses. No hemorrhage. No midline shift. No evidence for acute infarction. Normal gra y/white matter differentiation. No areas of low density in the white matter. CEREBELLUM: No masses. No hemorrhage. No alteration of density. No evidence for acute infarction. EXTRAAXIAL SPACES: No fluid collections. No masses. ORBITS AND GLOBE: No intra- or extraconal masses. Normal contour of globe without masses. CALVARIUM: No fracture. PARANASAL SINUSES: No fluid levels. SOFT TISSUES: No mass or hematoma. OTHER: No other significant finding. IMPRESSION: NORMAL BRAIN CT WITHOUT CONTRAST. EVIDENCE OF ACUTE STROKE: NO. COMMENT: Pertinent positive or negative findings of the imaging study reported as a CRITICAL EXAM kamille GIBBS PA-C at10:46 on 01/08/2019. Category of Critical Exam: Stroke alert Quality ID # [id number]: Final reports with documentation of one or more dose reduction techniques (e.g., Au tomated exposure control, adjustment of the mA and/or kV according to patient size, use of iterative reconstruction technique) TECHNICAL DOCUMENTATION: JOB ID: [id number] [employer]- All Rights Reserved Reading location - IP/workstation name: [email or web address]
[2019-01-08] MEDS ORDERED: LABETALOL HCL INJ 20 MG/4 ML DISP.SYRIN IV ONE (10:56)
[2019-01-08] MEDS ORDERED: HYDRALAZINE HCL INJ/PF 20 MG/1 ML SDV IV ONE (11:08)
[2019-01-08 11:22] LABS: INTERNATIONAL RATION (INR) 0.98; PROTHROMBIN TIME 13.4 SEC (11.4-15.4)
[2019-01-08 11:23] LABS: PARTIAL THROMBOPLASTIN TIME 31.5 SEC (23.5-35.8)
[2019-01-08 11:30] LABS: ABSOLUTE EOSINOPHILS # (AUTO) 0.1 10^3/uL (0.0-0.6); ABSOLUTE LYMPHOCYTES (AUTO) 1.4 10^3/uL (0.5-4.7); ABSOLUTE MONOCYTES (AUTO) 0.6 10^3/uL (0.1-1.4); ABSOLUTE NEUT (AUTO) 3.4 10^3/uL (1.7-8.2); BASOPHILS % (AUTO) 0.4 % (0-2); EOSINOPHILS % (AUTO) 1.3 % (0-6); HEMATOCRIT 39.6 % (36.0-47.0); HEMOGLOBIN 12.9 g/dL (12.0-15.5); LYMPHOCYTES % (AUTO) 25.6 % (13-45); MEAN CORPUSCULAR HEMOGLOBIN 26.9 pg (27.0-33.4); MEAN CORPUSCULAR HGB CONC 32.6 g/dL (32.0-36.0); MEAN CORPUSCULAR VOLUME 83 fl (80-97); MONOCYTES % (AUTO) 11.3 % (3-13); PLATELET COUNT 242 10^3/uL (150-450); RED BLOOD COUNT 4.81 10^6/uL (3.72-5.28); RED CELL DISTRIBUTION WIDTH 14.7 % (11.5-14.0); SEGMENTED NEUTROPHILS % (AUTO) 61.4 % (42-78); TOTAL CELLS COUNTED % (AUTO) 100 %; WHITE BLOOD COUNT 5.5 10^3/uL (4.0-10.5)
[2019-01-08 11:49] LABS: ALANINE AMINOTRANSFERASE 31 U/L (9-52); ALKALINE PHOSPHATASE 89 U/L (38-126); ANION GAP 8 (5-19); ASPARTATE AMINO TRANSFERASE 30 U/L (14-36); BILIRUBIN,DIRECT 0.2 mg/dL (0.0-0.4); BILIRUBIN,TOTAL 0.5 mg/dL (0.2-1.3); BLOOD UREA NITROGEN 8 mg/dL (7-20); CALCIUM 9.4 mg/dL (8.4-10.2); CARBON DIOXIDE 23 mmol/L (22-30); CHLORIDE 110 mmol/L (98-107); CREATINE KINASE 125 U/L (30-135); GLUCOSE 107 mg/dL (75-110); POTASSIUM 3.4 mmol/L (3.6-5.0); SODIUM 140.6 mmol/L (137-145); TOTAL PROTEIN 7.7 g/dL (6.3-8.2)
[2019-01-08] MEDS ORDERED: AMLODIPINE BESYLATE 10 MG TABLET PO ONE (12:13)
[2019-01-08] MEDS ORDERED: ACETAMINOPHEN 325 MG TABLET PO ONE (12:13)
[2019-01-08] MEDS ORDERED: DILTIAZEM HCL 240 MG CAPSULE.CR PO ONE (12:13)
[2019-01-08 12:29] LABS: APPEARANCE,URINE CLEAR; BILIRUBIN,URINE NEGATIVE (NEGATIVE); COLOR,URINE YELLOW; GLUCOSE, URINE NEGATIVE (NEGATIVE); KETONES,URINE NEGATIVE (NEGATIVE); LEUKOCYTE ESTERASE,URINE NEGATIVE (NEGATIVE); NITRITE,URINE NEGATIVE (NEGATIVE); PROTEIN,URINE NEGATIVE (NEGATIVE); URINE SPECIFIC GRAVITY 1.009; UROBILINOGEN,URINE NEGATIVE mg/dL (<2.0)
[2019-01-08] MEDS ORDERED: METOPROLOL TARTRATE PF/INJ 5 MG/5 ML SDV IV ONE ×2 (12:56→14:17)
[2019-01-08 15:34] VITALS: BP 179/116
--- NOTE | 2019-01-08 15:58 | EKG REPORT ---
SEVERITY:- ABNORMAL ECG - SINUS RHYTHM PROBABLE LEFT ATRIAL ABNORMALITY PROBABLE LEFT VENTRICULAR HYPERTROPHY ABNORMAL T, CONSIDER ISCHEMIA, INFERIOR LEADS : Confirmed by: Adams Velasco MD 08-Jan-2019 15:57:51
--- NOTE | 2019-01-08 17:14 | ER Document Report ---
Entered by VIOLETA FLANAGAN SCRIBE 01/08/19 1101 Acting as scribe for:WING DANG MD ED General - General Chief Complaint: S/S of Possible Stroke Stated Complaint: EYE SWELLING/LEFT SIDE TINGLING AND NUMB Time Seen by Provider: 01/08/19 10:30 Primary Care Provider: JARET REILLY PA-C [NO LOCAL MD] - Follow up as needed Mode of Arrival: Ambulatory Information source: Patient Notes: Patient is a 38-year-old female with HTN, migraines presents to the emergency department complaining of numbness and tingling in her bilateral upper e xtremities. Patient states she woke up this morning and noticed that she had a tingling sensation from her elbow to her fingertips bilaterally. She also states that she began to have swelling and itchiness in her eyelids and left arm and fingertips. Patient states her symptoms are now mostly resolved. She denies any changes in her diet or a history of similar symptoms. Patient states that she did not take her blood pressure medications this morning further stating "on a good day, I am normally 120" diastolic. In triage, patient had a blood pressure of 206/140. Patient reports she is seeing a hypertensive specialist in [place] named Sangita Romo MD. She saw her last Thursday and had some medication changes. Currently she takes Spironolactone 100 mg once daily, bisoprolol 10 mg every morning, diltiazem 240 mg every morning, losartan 100 mg nightly, and amlodipine 10 mg nightly. TRAVEL OUTSIDE OF THE [place] IN LAST 30 DAYS: No - Related Data Allergies/Adverse Reactions: No Known Allergies Allergy (Verified 01/08/19 10:25) Past Medical History - General Information source: Patient - Social History Smoking Status: Never Smoker Cigarette use (# per day): No Chew tobacco use (# tins/day): No Smoking Education Provided: No Frequency of alcohol use: None Family History: DM, Hypertension - Past Medical History Cardiac Medical History: Reports: Hx Hypertension - chronic , has been sent to hypertension specialist by [facility] Neurological Medical History: Reports: Hx Migraine Past Surgical History: Reports: Hx Section - Immunizations Immunizations up to date: No Hx Diphtheria, Pertussis, Tetanus Vaccination: No Review of Systems - Review of Systems Constitutional: No symptoms reported EENT: No symptoms reported Cardiovascular: No symptoms reported Respiratory: No symptoms reported Gastrointestinal: No symptoms reported Genitourinary: No symptoms reported Female Genitourinary: No symptoms reported Musculoskeletal: See HPI Skin: No symptoms reported Hematologic/Lymphatic: No symptoms reported Neurological/Psychological: See HPI -: Yes All other systems reviewed and negative Physical Exam - Vital signs Vitals: Temp Pulse Resp BP Pulse Ox 98.2 F 110 H 16 206/140 H 96 01/08/19 10:01/08/19 10:01/08/19 10:01/08/19 10:01/08/19 10:26 - Notes Notes: GENERAL: Alert, interacts well. No acute distress. HEAD: Normocephalic, atraumatic. EYES: Pupils equal, round, and reactive to light. Extraocular movements intact. ENT: Oral mucosa moist, tongue midline. NECK: Full range of motion. Supple. Trachea midline. LUNGS: Clear to auscultation bilaterally, no wheezes, rales, or rhonchi. No respiratory distress. HEART: Regular rate and rhythm. No murmurs, gallops, or rubs. ABDOMEN: Soft, non-tender. Non-distended. Bowel sounds present in all 4 quadrants. No guarding, rigidity, or rebound. EXTREMITIES: Moves all 4 extremities spontaneously. When tapping the left median nerve, patient complains of numbness to the left thumb. No edema, radial and dorsalis pedis pulses 2/4 bilaterally. No cyanosis. NEUROLOGICAL: Alert and oriented x3. Normal speech. PSYCH: Normal affect, normal mood. SKIN: Warm, dry, normal turgor. No rashes or lesions noted. Course - Re-evaluation Re-evalutation: 01/08/19 13:16 At this time the patient is complaining of a headache. CT scan of the brain was unremarkable. We have lowered her blood pressure almost to what she describes as her baseline where she states on a good day she has a diastolic of 120. Her complaints of bilateral upper extremity numbness and tingling with the left being worse than the right, and bilateral eye lid swelling with the left being worse than the right, does not seem to follow any particular disease process. She did not take her morning medications. The bisoprolol we do not have here so I gave her 5 mg of metoprolol IV. We also gave her her oral dose of diltiazem and amlodipine. She previously had received hydralazine 20 mg which lowered her blood pressure to about 183/125. 01/08/19 15:25 Patient is feeling better at this time. Her blood pressure is down to 170/115. By the patient's history this is a little better than her baseline. She will contact her hypertension specialist in [place] and relay the information about what transpired today. At this time the numbness and tingling to the upper extremities has mostly resolved, and the swelling to the eyes seems to have resolved. - Vital Signs Vital signs: Temp Pulse Resp BP Pulse Ox 98.2 F 110 H 16 178/132 H 100 01/08/19 10:26 01/08/19 10:38 01/08/19 13:46 01/08/19 13:46 01/08/19 13:46 - Laboratory Result Diagrams: 01/08/19 11:06 01/08/19 11:06 Laboratory results interpreted by me: 01/08/19 01/08/19 11:06 11:06 MCH 26.9 L RDW 14.7 H Potassium 3.4 L Chloride 110 H - Diagnostic Test Radiology reviewed: Reports reviewed - Noncontrast CT scan of the head is unremarkable. - EKG Interpretation by Me EKG shows normal: Sinus rhythm, [place], Intervals, QRS Complexes. abnormal: ST-T Waves - Abnormal inferior T wave Rate: Normal - 90 Rhythm: NSR Voltage: Consistant with LVH P Waves: LAE When compared to previous EKG there are: No significant change Discharge - Discharge Clinical Impression: Numbness and tingling of both upper extremities, Uncontrolled hypertension Condition: Stable Disposition: HOME, SELF-CARE Additional Instructions: Be sure to take your bisoprolol blood pressure medicine dose you get home. Check your blood pressures regularly. Call your high blood pressure specialist Thursday morning to tell her about what occurred today, and schedule a follow-up appointment. RETURN TO THE EMERGENCY ROOM IF ANY NEW OR WORSENING SYMPTOMS. Referrals: JARET REILLY PA-C [NO LOCAL MD] - Follow up as needed Scribe Attestation: 01/08/19 11:40 I personally performed the services described in the documentation, reviewed and edited the documentation which was dictated to the scribe in my presence, and it accurately records my words and actions. I personally performed the services described in the documentation, reviewed and edited the documentation which was dictated to the scribe in my presence, and it accurately records my words and actions.
== END 2019-01-08 15:46 | disposition home or self-care (01) ==
LOC: ER 10:17
DX: R20.0 Anesthesia of skin (principal); I10 Essential (primary) hypertension; R20.2 Paresthesia of skin
CPT/HCPCS: 93005; 96376; 82962; 99284; 96374; 96375; 36415; 87086; 82550; 84703; 85025; 85610; 85730; 80053; 81001; 84484; 70450; 93010; J0360; J3490